=== PATIENT | female | born 1990 | race Caucasian/White ===

== ENCOUNTER 2020-04-28 00:51 | Inpatient (IN) | payer OTHER ==
[~2020-04-28 00:51] MED LIST: BACTRIM DS TAB1 EACH PO; CLEOCIN300 MG PO; IBUPROFEN800 MG PO; NORCO 5-325 TA1 EACH PO; PRENATAL FORMU1 EACH PO
[2020-04-28 07:37] LABS: BILIRUBIN NEGATIVE (NEGATIVE); BLOOD NEGATIVE Ery/uL (NEGATIVE); CLARITY CLEAR (CLEAR); COLOR YELLOW (YELLOW); GLUCOSE (U) NORMAL (NORMAL); LEUKOCYTES NEGATIVE Leu/uL (NEGATIVE); NITRITE NEGATIVE (NEGATIVE); PROTEIN NEGATIVE (NEGATIVE); SPECIFIC GRAVITY >=1.030 (1.001-1.030)
[2020-04-28 07:44] LABS: AMPHETAMINES NEGATIVE (NEGATIVE); BARBITURATES NEGATIVE (NEGATIVE); ECSTASY (MDMA) NEGATIVE (NEGATIVE); MARIJUANA (THC) NEGATIVE (NEGATIVE); METHADONE NEGATIVE (NEGATIVE); OPIATES NEGATIVE (NEGATIVE); OXYCODONE NEGATIVE (NEGATIVE)
[2020-04-28 08:16] LABS: HCT 34.9 % (37.0-47.0); HGB 12.1 g/dl (12.5-16.0); MCH 31.8 pg (25.0-31.0); MCHC 34.7 g/dL (32.0-36.0); MCV 91.8 fL (78.0-100.0); MPV 9.5 fL (6.0-9.5); RBC 3.8 M/uL (4.20-5.40); RDW 13.8 % (11.5-14.0); WBC 11.8 K/uL (4.0-10.5)
[2020-04-29 05:48] LABS: HCT 32.2 % (37.0-47.0); HGB 10.7 g/dl (12.5-16.0); MCH 31.3 pg (25.0-31.0); MCHC 33.2 g/dL (32.0-36.0); MCV 94.2 fL (78.0-100.0); MPV 9.4 fL (6.0-9.5); RBC 3.42 M/uL (4.20-5.40); RDW 13.8 % (11.5-14.0); WBC 17.2 K/uL (4.0-10.5)
[2020-04-30] MEDS ORDERED: SEROQUEL 25MG T25 MG PO (08:57)
[2020-04-30] MEDS ORDERED: IBUPROFEN800 MG PO (08:57)
[2020-04-30] MEDS ORDERED: OXYCODONE-ACET1 EAC1 PO (08:57)
[2020-04-30] MEDS ORDERED: COLACE100 MG PO (08:57)
[2020-04-30] MEDS ORDERED: SERTRALINE HCL25 MG PO (08:57)
== END 2020-04-30 18:43 | disposition home or self-care (01) | DRG 788 ==
LOC: FOB 00:51
PROVIDERS: ADMIT Obstetrics & Gynecology
PROC: 3E033VJ Introduction of Other Hormone into Peripheral Vein, Percutaneous Approach (ICD-10-PCS; 2020-04-28)
PROC: 10D00Z1 Extraction of Products of Conception, Low, Open Approach (ICD-10-PCS; principal; 2020-04-28 18:31)
DX: O62.1 Secondary uterine inertia (principal); Z37.0 Single live birth; O34.211 Maternal care for low transverse scar from previous cesarean delivery; Z3A.39 39 weeks gestation of pregnancy; Z88.5 Allergy status to narcotic agent; Z88.1 Allergy status to other antibiotic agents; O99.344 Other mental disorders complicating childbirth; F31.9 Bipolar disorder, unspecified; Z20.822 Contact with and (suspected) exposure to COVID-19; O99.334 Smoking (tobacco) complicating childbirth; F17.210 Nicotine dependence, cigarettes, uncomplicated; F41.8 Other specified anxiety disorders
CPT/HCPCS: 36415; 80305; 81003; 86850; 86900; 86901; J0456; J0690; J1885; J2250; J2274; J2795; J7050; J7120; U0002

== ENCOUNTER 2020-11-23 07:02 | Emergency (ER) | payer OTHER ==
[~2020-11-23 07:02] MED LIST changes: +COLACE100 MG PO; +OXYCODONE-ACET1 EAC1 PO; +SEROQUEL 25MG T25 MG PO; +SERTRALINE HCL25 MG PO
[2020-11-23 07:43] LABS: BASOPHIL 0.3 % (0-2); EOSINOPHIL 1.3 % (0-5); HCT 41.6 % (37.0-47.0); HGB 13.6 g/dl (12.5-16.0); LYMPHOCYTE 12.4 % (15-48); MCH 29.4 pg (25.0-31.0); MCHC 32.7 g/dL (32.0-36.0); MONOCYTE 7.3 % (0-12); MPV 9.1 fL (6.0-9.5); NEUTROPHIL 78.4 % (41-80); NRBC 0; PLT 293 K/uL (150-400); RBC 4.62 M/uL (4.20-5.40); RDW 13.1 % (11.5-14.0); WBC 9.3 K/uL (4.0-10.5)
[2020-11-23 07:53] LABS: BILIRUBIN 1+ mg/dL (NEGATIVE); BLOOD NEGATIVE Ery/uL (NEGATIVE); CLARITY HAZY (CLEAR); COLOR YELLOW (YELLOW); GLUCOSE (U) NORMAL (NORMAL); LEUKOCYTES NEGATIVE Leu/uL (NEGATIVE); NITRITE NEGATIVE (NEGATIVE); PROTEIN 1+ mg/dL (NEGATIVE); SPECIFIC GRAVITY 1.025 (1.001-1.030)
[2020-11-23 07:57] LABS: AMPHETAMINES NEGATIVE (NEGATIVE); BARBITURATES NEGATIVE (NEGATIVE); ECSTASY (MDMA) NEGATIVE (NEGATIVE); MARIJUANA (THC) NEGATIVE (NEGATIVE); METHADONE NEGATIVE (NEGATIVE); OPIATES NEGATIVE (NEGATIVE); OXYCODONE NEGATIVE (NEGATIVE)
[2020-11-23 07:58] LABS: ALBUMIN 4.1 g/dL (3.4-5.0); BILIRUBIN - TOTAL 0.7 mg/dL (0.2-1.0); BUN/CREAT RATIO (CALC) 9.9 RATIO; CREATININE 0.81 mg/dL (0.51-0.95); GLOBULIN (CALCULATION) 3.4 g/dL; POTASSIUM 3.7 mmol/L (3.5-5.1); TOTAL PROTEIN 7.5 g/dL (6.4-8.2)
[2020-11-23 07:59] LABS: BACTERIA 2+; URINARY RBC RARE
[2020-11-23] MEDS ORDERED: BACTRIM DS TAB1 EACH PO (10:09)
[2020-11-23] MEDS ORDERED: ONDANSETRON ODT4 MG PO (10:09)
[2020-11-24] MEDS ORDERED: COLACE100 M1 PO (09:14)
[2020-11-24] MEDS ORDERED: PREPARATION H O28 GM PR (09:14)
== END 2020-11-23 11:32 | disposition home or self-care (01) ==
LOC: FER 07:02
PROVIDERS: Internal Medicine
DX: F11.23 Opioid dependence with withdrawal (principal); N39.0 Urinary tract infection, site not specified; R11.2 Nausea with vomiting, unspecified; F17.210 Nicotine dependence, cigarettes, uncomplicated; Z88.5 Allergy status to narcotic agent; Z88.1 Allergy status to other antibiotic agents; Z20.822 Contact with and (suspected) exposure to COVID-19
CPT/HCPCS: 36415; 71045; 80053; 80305; 81001; 83690; 85025; J2405; J2550; J3411; J3475; J7030; J7120; U0002

== ENCOUNTER 2020-11-24 08:32 | Emergency (ER) | payer OTHER ==
[~2020-11-24 08:32] MED LIST changes: +ONDANSETRON ODT4 MG PO
[2020-11-24] MEDS ORDERED: PREPARATION H O28 GM PR (09:14)
[2020-11-24] MEDS ORDERED: COLACE100 M1 PO (09:14)
== END 2020-11-24 09:55 | disposition home or self-care (01) ==
LOC: FER 08:32
DX: K64.9 Unspecified hemorrhoids (principal); F17.210 Nicotine dependence, cigarettes, uncomplicated; Z88.1 Allergy status to other antibiotic agents; Z88.5 Allergy status to narcotic agent
CPT/HCPCS: 99284

== ENCOUNTER 2021-03-29 07:39 | Emergency (ER) | payer OTHER ==
[~2021-03-29 07:39] MED LIST changes: +COLACE100 M1 PO; +PREPARATION H O28 GM PR
[2021-03-29 10:09] LABS: BASOPHIL 0.5 % (0-2); EOSINOPHIL 1.4 % (0-5); HCT 42.1 % (37.0-47.0); HGB 13.9 g/dl (12.5-16.0); LYMPHOCYTE 16.9 % (15-48); MCH 29.6 pg (25.0-31.0); MCV 89.8 fL (78.0-100.0); MONOCYTE 6.8 % (0-12); MPV 9.2 fL (6.0-9.5); NEUTROPHIL 74.3 % (41-80); NRBC 0; PLT 323 K/uL (150-400); RBC 4.69 M/uL (4.20-5.40); RDW 12.9 % (11.5-14.0); WBC 8.1 K/uL (4.0-10.5)
[2021-03-29 10:31] LABS: BILIRUBIN NEGATIVE (NEGATIVE); BLOOD TRACE-INTACT Ery/uL (NEGATIVE); CLARITY CLEAR (CLEAR); COLOR YELLOW (YELLOW); GLUCOSE (U) NORMAL (NORMAL); LEUKOCYTES NEGATIVE Leu/uL (NEGATIVE); NITRITE NEGATIVE (NEGATIVE); PROTEIN NEGATIVE (NEGATIVE); SPECIFIC GRAVITY 1.015 (1.001-1.030); UROBILINOGEN 0.2 mg/dL (0.2-1.0)
[2021-03-29 10:36] LABS: ALBUMIN 4.3 g/dL (3.4-5.0); ALKALINE PHOSHATASE 54 U/L (46-116); ALT 26 U/L (14-59); AST 32 U/L (15-37); BILIRUBIN - TOTAL 0.6 mg/dL (0.2-1.0); BUN 9 mg/dL (7-18); BUN/CREAT RATIO (CALC) 14.5 RATIO; CHLORIDE 104 mmol/L (98-107); CO2 (BICARBONATE) 24 mmol/L (21-32); CPK 182 U/L (26-192); CREATININE 0.62 mg/dL (0.51-0.95); GLOBULIN (CALCULATION) 3.7 g/dL; GLUCOSE 88 mg/dL (74-106); MAGNESIUM 2.5 mg/dL (1.8-2.4); POTASSIUM 4.5 mmol/L (3.5-5.1)
[2021-03-29 10:36] LABS: ECSTASY (MDMA) NEGATIVE (NEGATIVE); MARIJUANA (THC) POSITIVE (NEGATIVE); METHADONE NEGATIVE (NEGATIVE); OPIATES NEGATIVE (NEGATIVE)
[2021-03-29 10:37] LABS: AMPHETAMINES NEGATIVE (NEGATIVE); BARBITURATES NEGATIVE (NEGATIVE); OXYCODONE NEGATIVE (NEGATIVE)
[2021-03-29 10:43] LABS: CORONAVIRUS 2019 SARS-COV-2 NEGATIVE (NEGATIVE); INFLUENZA A NAA NEGATIVE (NEGATIVE)
[2021-03-29 10:46] LABS: BACTERIA 1+
== END 2021-03-29 14:04 | disposition home or self-care (01) ==
LOC: FER 07:39
PROVIDERS: Emergency Medicine
DX: R55 Syncope and collapse (principal); R56.9 Unspecified convulsions; F17.210 Nicotine dependence, cigarettes, uncomplicated; Z20.822 Contact with and (suspected) exposure to COVID-19; Z88.1 Allergy status to other antibiotic agents; Z88.5 Allergy status to narcotic agent
CPT/HCPCS: 36415; 70450; 80053; 80305; 81001; 82550; 83735; 84439; 84443; 84484; 84703; 85025; 93005; G0480; J1885; J2405; U0002

== ENCOUNTER 2021-05-10 10:19 | Emergency (ER) | payer OTHER ==
[2021-05-10 12:03] LABS: BASOPHIL 0.3 % (0-2); EOSINOPHIL 1.3 % (0-5); HCT 39.4 % (37.0-47.0); LYMPHOCYTE 22.5 % (15-48); MCH 29.9 pg (25.0-31.0); MCV 90.6 fL (78.0-100.0); MONOCYTE 7.2 % (0-12); NEUTROPHIL 68.4 % (41-80); NRBC 0; PLT 275 K/uL (150-400); RBC 4.35 M/uL (4.20-5.40); RDW 13.2 % (11.5-14.0); WBC 7.9 K/uL (4.0-10.5)
[2021-05-10 12:27] LABS: ALBUMIN 4.2 g/dL (3.4-5.0); ALKALINE PHOSHATASE 47 U/L (46-116); ALT 26 U/L (14-59); AST 17 U/L (15-37); BILIRUBIN - TOTAL 0.4 mg/dL (0.2-1.0); BUN 11 mg/dL (7-18); BUN/CREAT RATIO (CALC) 16.2 RATIO; CHLORIDE 105 mmol/L (98-107); CO2 (BICARBONATE) 28 mmol/L (21-32); CREATININE 0.68 mg/dL (0.51-0.95); GLOBULIN (CALCULATION) 3.6 g/dL; GLUCOSE 89 mg/dL (74-106); LIPASE 113 U/L (73-393); TOTAL PROTEIN 7.8 g/dL (6.4-8.2)
== END 2021-05-10 14:07 | disposition home or self-care (01) ==
LOC: FER 10:19
PROVIDERS: Internal Medicine
DX: R07.89 Other chest pain (principal); R00.1 Bradycardia, unspecified; F17.210 Nicotine dependence, cigarettes, uncomplicated
CPT/HCPCS: 36415; 71045; 80053; 83690; 84145; 84439; 84443; 84484; 85025; 93005

== ENCOUNTER 2021-07-12 20:04 | Emergency (ER) | payer SELFPAY ==
[2021-07-12] MEDS ORDERED: NORCO 5-325 TA1 EACH PO (23:59)
[2021-07-12] MEDS ORDERED: NAPROXEN500 MG PO (23:59)
== END 2021-07-13 00:40 | disposition home or self-care (01) ==
LOC: FER 20:04
DX: S61.310A Laceration without foreign body of right index finger with damage to nail, initial encounter (principal); Z88.5 Allergy status to narcotic agent; X58.XXXA Exposure to other specified factors, initial encounter
CPT/HCPCS: J1170; J2001